=== PATIENT | male | born 1995 | race Caucasian/White ===

== ENCOUNTER 2016-06-17 06:48 | Outpatient (CLI) ==
--- NOTE | 2016-06-21 08:48 | HOLTER ---
PATIENT INFORMATION AND COMMENTS Indications: DIZZINESS, SEIZURES __ Patient Medications: NO PATIENT MEDICATIONS __ Pre-procedure Summary: Protocol: Standard Heart Rate Started: 06/17/16 1000 Minimum: 39 BPM Weight: 210 LBS Ended: 06/18/16 1000 Maximum: 168 BPM Height: 70" Duration: 24 HOURS Average: 79 BPM _ INTERPRETATIONS/OBSERVATIONS: 1. BASIC RHYTHM: SINUS, RATE 40/BPM TO 160/BPM, AVERAGE 80/BPM (SINUS ARRHYTHMIAS NOTED) 2. RARE PAC'S , MOSTLY MARKED SINUS ARRHYTHMIAS 3. NOTED--3 EPISODES--MOBITZ TYPE 2, 2ND DEGREE AV BLOCK WITH LONGEST PAUSE 2.[address]-T WAVE CHANGES FROM BASELINE RECOMMEND: REFERRAL TO PATIENT RESOURCE COORDINATOR/EVENT MONITOR MTDD
== END 2016-06-17 06:49 | disposition home or self-care (01) ==
LOC: CAR 06:48
PROVIDERS: ATTEND Family Medicine
DX: R42 Dizziness and giddiness (principal)